=== PATIENT | female | born 1965 | race Caucasian/White ===

== ENCOUNTER 2017-04-18 06:16 | Day surgery (SDC) | payer MEDICARE ==
[~2017-04-18] VITALS: Ht 167.6 cm; Wt 96.7 kg
[~2017-04-18 06:16] MED LIST: LEXAPRO10 MG PO; XANAX0.5 MG PO
[2017-04-18 06:46] VITALS: BP 117/58
[2017-04-18 10:25] VITALS: BP 120/65
[2017-04-18 10:47] VITALS: BP 120/65
== END 2017-04-18 10:50 | disposition home or self-care (01) ==
LOC: SDC 06:16
DX: N84.0 Polyp of corpus uteri (principal); N92.1 Excessive and frequent menstruation with irregular cycle; N94.6 Dysmenorrhea, unspecified; N88.2 Stricture and stenosis of cervix uteri; K21.9 Gastro-esophageal reflux disease without esophagitis
CPT/HCPCS: 88305; J0690; J1100; J1170; J1885; J2250; J2405; J3010